=== PATIENT | female | born 1980 | race Two or more races ===

== ENCOUNTER 2016-09-16 12:29 | Emergency (ER) | payer MEDICAID ==
--- NOTE | 2016-09-16 12:41 | ER Document Report ---
ED Medical Screen (RME) - General Stated Complaint: ABDOMINAL PAIN Mode of Arrival: Ambulatory Information source: Patient Notes: Patient states she is currently about 3 months but has not had ultrasound to confirm the . Patient complains of worsening lower abdominal pain. Patient denies any vaginal bleeding or discharge. Patient denies any urinary symptoms. Patient does report nausea and vomiting. I have greeted and performed a rapid initial assessment of this patient. A comprehensive ED assessment and evaluation of the patient, analysis of test results and completion of the medical decision making process will be conducted by additional ED providers. - Related Data Allergies/Adverse Reactions: No Known Allergies Allergy (Unverified 09/16/16 12:39) Physical Exam - Vital signs Vitals: Temp Pulse Resp BP 98.4 F 100 18 114/76 09/16/16 12:38 09/16/16 12:38 09/16/16 12:38 09/16/16 12:38 - Abdominal Tenderness: Tender - Lower abdomen Course - Vital Signs Vital signs: Temp Pulse Resp BP Pulse Ox 98.4 F 100 18 114/76 09/16/16 12:38 09/16/16 12:38 09/16/16 12:38 09/16/16 12:38
[2016-09-16 13:56] LABS: ABSOLUTE EOSINOPHILS # (AUTO) 0.1 10^3/uL (0.0-0.6); ABSOLUTE LYMPHOCYTES (AUTO) 1.6 10^3/uL (0.5-4.7); ABSOLUTE MONOCYTES (AUTO) 0.7 10^3/uL (0.1-1.4); ABSOLUTE NEUT (AUTO) 7.1 10^3/uL (1.7-8.2); BASOPHILS % (AUTO) 0.4 % (0-2); EOSINOPHILS % (AUTO) 1.2 % (0-6); HEMATOCRIT 42.3 % (36.0-47.0); HEMOGLOBIN 13.6 g/dL (12.0-15.5); HGB HCT DIFFERENCE -1.5; LYMPHOCYTES % (AUTO) 17.2 % (13-45); MEAN CORPUSCULAR HEMOGLOBIN 30.5 pg (27.0-33.4); MEAN CORPUSCULAR HGB CONC 32.1 g/dL (32.0-36.0); MEAN CORPUSCULAR VOLUME 95 fl (80-97); MONOCYTES % (AUTO) 7.1 % (3-13); RED BLOOD COUNT 4.46 10^6/uL (3.72-5.28); RED CELL DISTRIBUTION WIDTH 13.2 % (11.5-14.0); SEGMENTED NEUTROPHILS % (AUTO) 74.1 % (42-78); WHITE BLOOD COUNT 9.5 10^3/uL (4.0-10.5)
[2016-09-16 14:06] LABS: AMORPHOUS SEDIMENT,URINE 1+ /HPF; APPEARANCE,URINE TURBID; BILIRUBIN,URINE NEGATIVE (NEGATIVE); GLUCOSE, URINE 50 mg/dL (NEGATIVE); KETONES,URINE NEGATIVE (NEGATIVE); LEUKOCYTE ESTERASE,URINE LARGE (NEGATIVE); NITRITE,URINE NEGATIVE (NEGATIVE); PROTEIN,URINE NEGATIVE (NEGATIVE); URINE SPECIFIC GRAVITY 1.014; UROBILINOGEN,URINE NEGATIVE mg/dL (<2.0)
[2016-09-16 14:15] LABS: ALANINE AMINOTRANSFERASE 11 U/L (9-52); ALBUMIN 4.1 g/dL (3.5-5.0); ALKALINE PHOSPHATASE 41 U/L (38-126); ANION GAP 12 (5-19); ASPARTATE AMINO TRANSFERASE 18 U/L (14-36); BILIRUBIN,TOTAL 0.4 mg/dL (0.2-1.3); BLOOD UREA NITROGEN 8 mg/dL (7-20); CALCIUM 9.6 mg/dL (8.4-10.2); CARBON DIOXIDE 26 mmol/L (22-30); CHLORIDE 100 mmol/L (98-107); GLUCOSE 94 mg/dL (75-110); LIPASE 81.1 U/L (23-300); POTASSIUM 4.7 mmol/L (3.6-5.0); SODIUM 137.6 mmol/L (137-145); TOTAL PROTEIN 7.1 g/dL (6.3-8.2)
--- NOTE | 2016-09-16 15:43 | ER Document Report ---
[id number] 4Bd TRAVEL OUTSIDE OF THE [place] IN LAST 30 DAYS: No - HPI Patient complains to provider of: Abdominal pain Onset: Other - see narrative Timing/Duration: Persistent Quality of pain: Cramping Associated symptoms: Other - see narrative <FERNANDA RODRIGUEZ - Last Filed: 09/16/16 16:08> <SWEETIE ALONSO - Last Filed: 09/18/16 01:27> - General Chief Complaint: Abdominal Cramping Stated Complaint: ABDOMINAL PAIN Notes: Patient is a 35-year-old female that presents to the emergency department today with complaints of abdominal pain. Patient states she is approximately 8-9 weeks and she has had intermittent abdominal pain since her began however over the last few days it has become constant. Patient states her pain is worse at night. Patient states she vomits after every meal. Patient is . Patient denies any vaginal bleeding, vaginal discharge, or urinary complaints. (FERNANDA RODRIGUEZ) - Related Data Allergies/Adverse Reactions: No Known Allergies Allergy (Unverified 01/04/13 12:18) Past Medical History - General Information source: Patient - Social History Smoking Status: Never Smoker Cigarette use (# per day): No Chew tobacco use (# tins/day): No Frequency of alcohol use: None Drug Abuse: None Lives with: Family Family History: Reviewed & Not Pertinent Patient has suicidal ideation: No Patient has homicidal ideation: No - Medical History Medical History: Negative Surgical Hx: Negative <FERNANDA RODRIGUEZ - Last Filed: 09/16/16 16:08> Review of Systems - Review of Systems Constitutional: No symptoms reported EENT: No symptoms reported Cardiovascular: No symptoms reported Respiratory: No symptoms reported Gastrointestinal: See HPI, Abdominal pain, Vomiting Genitourinary: denies: Burning, Dysuria, Discharge Female Genitourinary: See HPI, . denies: Vaginal discharge, Vaginal bleeding Musculoskeletal: No symptoms reported Skin: No symptoms reported Hematologic/Lymphatic: No symptoms reported Neurological/Psychological: No symptoms reported -: Yes All other systems reviewed and negative <FERNANDA RODRIGUEZ - Last Filed: 09/16/16 16:08> Physical Exam <FERNANDA RODRIGUEZ - Last Filed: 09/16/16 16:08> <SWEETIE ALONSO - Last Filed: 09/18/16 01:27> - Vital signs Vitals: Temp Pulse Resp BP 98.4 F 100 18 114/76 09/16/16 12:38 09/16/16 12:38 09/16/16 12:38 09/16/16 12:38 (FERNANDA RODRIGUEZ) (SWEETIE ALONSO) - Notes Notes: Physical Exam: General: Alert, appears well. HEENT: Normocephalic. Atraumatic. PERRL. Extraocular movements intact. Oropharynx clear. Neck: Supple. Non-tender. Respiratory: No respiratory distress. Clear and equal breath sounds bilaterally. Cardiovascular: Regular rate and rhythm. Abdominal: Normal Inspection. Non-tender. No distension. Normal Bowel Sounds. Back: Non-tender. No deformity or step off. Extremities: Moves all four extremities. Upper extremities: Non-tender. Normal ROM. Lower extremities: Normal inspection. No edema. Normal ROM. Neurological: Normal cognition. AAOx4. Normal speech. Psychological: Normal affect. Normal Mood. Skin: Warm. Dry. Normal color. (FERNANDA RODRIGUEZ) Course - Laboratory Result Diagrams: 09/16/16 13:30 09/16/16 13:30 <FERNANDA RODRIGUEZ - Last Filed: 09/16/16 16:08> - Laboratory Result Diagrams: 09/16/16 13:30 09/16/16 13:30 <SWEETIE ALONSO - Last Filed: 09/18/16 01:27> - Re-evaluation Re-evalutation: 09/16/16 18:59 Patient presents emergency Department chief complaint of suprapubic abdominal pain. Patient is 3 months has her first follow-up for SALES PERSON appointment on October 01. Said she's had some burning with urination no vaginal bleeding or discharge. On examination well-appearing nontoxic no acute abdominal guarding rebound rigidity. Does have a urinary tract infection which were given a treatment with Macrobid no signs of pyelonephritis or concerns for kidney stone. She is not septic. Ultrasound shows 10 week 4 day intrauterine with no other abnormalities. The discharge her to home on Macrobid follow primary care physician one to 2 days [facility]ES [facility]ERSON as scheduled on October 01 discussed reasons for ED return sooner (SWEETIE ALONSO) - Vital Signs Vital signs: Temp Pulse Resp BP Pulse Ox 98.4 F 96 18 122/80 98 09/16/16 19:22 09/16/16 19:22 09/16/16 19:22 09/16/16 19:22 09/16/16 19:22 (FERNANDA RODRIGUEZ) (SWEETIE ALONSO) - Laboratory Laboratory results interpreted by va: 09/16/16 09/16/16 13:30 13:30 Creatinine 0.50 L Beta HCG, Quant 022370.00 H Urine Glucose (UA) 50 H Ur Leukocyte Esterase LARGE H (FERNANDA RODRIGUEZ) (SWEETIE ALONSO) Discharge <FERNANDA RODRIGUEZ - Last Filed: 09/16/16 16:08> <SWEETIE ALONSO - Last Filed: 09/18/16 01:27> - Discharge Clinical Impression: UTI (urinary tract infection) during Condition: Stable Disposition: HOME, SELF-CARE Instructions: Trimethoprim-Sulfa ([facility]) Additional Instructions: Urinary Tract Infection Your evaluation indicates that you have a urinary tract infection. This is due to germs growing in the bladder. This is a common problem. This infection usually responds quickly to antibiotics. Your antibiotic should be taken exactly as prescribed. Drink plenty of fluids -- three to four quarts a day. Occasionally, a bladder anesthetic will be prescribed to help stop the feeling of urgency until the antibiotic has a chance to clear the infection. This may cause your urine to be dark orange. Certain urine infections require a culture. If the doctor obtained a culture, the results will be back in two days. You should call to see if a change in treatment is needed. A repeat urinalysis after you finish treatment is often recommended. The physician will let you know if further testing is required. Call the doctor if you develop fever, chills, flank pain, inability to urinate, or blood in the urine. Prescriptions: Nitrofurantoin/Nitrofuran Mac [Macrobid 100 mg Capsule] 1 tab PO BID #20 capsule Referrals: PAULINO LOPEZ MD [Primary Care Provider] - Follow up tomorrow (In one to 2 days return for increasing worsening or new symptoms) Scribe Documentation - Scribe Written by Genesis:: Genesis Lynn, 1614 09/16/16 acting as scribe for :: Malcolm <FERNANDA RODRIGUEZ - Last Filed: 09/16/16 16:08>
[2016-09-16 19:24] VITALS: BP 122/80
== END 2016-09-16 19:24 | disposition home or self-care (01) ==
LOC: MERGE 12:29 → ER 12:29
DX: N39.0 Urinary tract infection, site not specified (principal); R10.9 Unspecified abdominal pain; Z3A.08 8 weeks gestation of pregnancy; R11.10 Vomiting, unspecified
CPT/HCPCS: 36415; 76801; 80053; 81001; 83690; 84702; 85025; 86900; 86901; 99284

== ENCOUNTER 2017-04-12 06:50 | Inpatient (IN) | payer MEDICAID ==
[2017-04-12 07:35] LABS: APPEARANCE,URINE SLIGHTLY-CLOUDY; BILIRUBIN,URINE NEGATIVE (NEGATIVE); GLUCOSE, URINE 50 mg/dL (NEGATIVE); KETONES,URINE NEGATIVE (NEGATIVE); LEUKOCYTE ESTERASE,URINE SMALL (NEGATIVE); NITRITE,URINE NEGATIVE (NEGATIVE); PROTEIN,URINE NEGATIVE (NEGATIVE); URINE SPECIFIC GRAVITY 1.004; UROBILINOGEN,URINE NEGATIVE mg/dL (<2.0)
[2017-04-12 07:49] LABS: URINE BARBITURATES SCREEN NEGATIVE; URINE METHADONE SCREEN NEGATIVE; URINE OPIATES LOW NEGATIVE; URINE PHENCYCLIDINE SCREEN NEGATIVE
[2017-04-12] MEDS ORDERED: RINGERS SOLUTION,LACTATED 1,000 ML IV PRN (08:43)
[2017-04-12] MEDS ORDERED: MISOPROSTOL 0.2 MG TABLET PR PRN (08:50)
[2017-04-12] MEDS ORDERED: LIDOCAINE 1% INJ-PF (10 MG/ML) 30 ML SDV INJ PRN (08:50)
[2017-04-12] MEDS ORDERED: EPHEDRINE SULFATE INJ 50 MG/1 ML AMPULE IV PRN (08:53)
[2017-04-12] MEDS ORDERED: BUPIVACAINE HCL 0.25 % INJ/PF (2.5 MG/1 ML) 30 ML VIAL INFIL PRN (08:53)
[2017-04-12] MEDS ORDERED: BENZOIN/ALOE VERA/STORAX/TOLU TINCTURE 60 ML TP PRN (08:53)
[2017-04-12 09:51] LABS: ABSOLUTE EOSINOPHILS # (AUTO) 0.1 10^3/uL (0.0-0.6); ABSOLUTE LYMPHOCYTES (AUTO) 1.8 10^3/uL (0.5-4.7); ABSOLUTE MONOCYTES (AUTO) 0.8 10^3/uL (0.1-1.4); ABSOLUTE NEUT (AUTO) 6.9 10^3/uL (1.7-8.2); BASOPHILS % (AUTO) 0.2 % (0-2); EOSINOPHILS % (AUTO) 0.8 % (0-6); HEMATOCRIT 37.9 % (36.0-47.0); HGB HCT DIFFERENCE 1.1; LYMPHOCYTES % (AUTO) 19.2 % (13-45); MEAN CORPUSCULAR HEMOGLOBIN 33.2 pg (27.0-33.4); MEAN CORPUSCULAR HGB CONC 34.3 g/dL (32.0-36.0); MEAN CORPUSCULAR VOLUME 97 fl (80-97); MONOCYTES % (AUTO) 8.2 % (3-13); RED BLOOD COUNT 3.91 10^6/uL (3.72-5.28); RED CELL DISTRIBUTION WIDTH 14.5 % (11.5-14.0); SEGMENTED NEUTROPHILS % (AUTO) 71.6 % (42-78); WHITE BLOOD COUNT 9.6 10^3/uL (4.0-10.5)
[2017-04-12] MEDS ORDERED: EPHEDRINE SULFATE INJ 50 MG/1 ML AMPULE ONE (09:56)
[2017-04-12] MEDS ORDERED: FENTANYL/BUPIVACAINE/NS/PF 200 MCG/100 ML RTUINJ EPI ONE (09:57)
[2017-04-12] MEDS ORDERED: BUPIVACAINE HCL 0.25 % INJ/PF (2.5 MG/1 ML) 30 ML VIAL ONE (09:57)
[2017-04-12] MEDS ORDERED: LIDOCAINE 2% INJ-PF (20 MG/ML) 10 ML AMPUL ONE (10:19)
[2017-04-12] MEDS ORDERED: LIDOCAINE 1% INJ-PF (10 MG/ML) 30 ML SDV ONE (10:51)
[2017-04-12] MEDS ORDERED: OXYTOCIN/NORMAL SALINE 20 UNIT/1,000 ML RTUINJ ONE (11:39)
[2017-04-12] MEDS: FENTANYL/BUPIVACAINE/NS/PF 100 ML EPI PRN ×3 (11:39→14:42)
[2017-04-12] MEDS ORDERED: MISOPROSTOL 0.2 MG TABLET ONE (11:39)
[2017-04-12] MEDS ORDERED: DIPH/PERTUSS(ACELL)/TETANUS VAC/PF 0.5 ML SYR (>=10YO) IM PRN (14:28)
[2017-04-12] MEDS ORDERED: ACETAMINOPHEN WITH CODEINE #3 TABLET PO PRN ×2 (14:28)
[2017-04-12] MEDS ORDERED: DIBUCAINE 1% OINTMENT 28 GM TP PRN (14:28)
[2017-04-12] MEDS ORDERED: ZOLPIDEM TARTRATE 5 MG TABLET PO PRN (14:28)
[2017-04-12] MEDS ORDERED: BENZOCAINE/MENTHOL AEROSOL SPRAY 56 ML TOP PRN (14:28)
[2017-04-12] MEDS ORDERED: OXYTOCIN/NORMAL SALINE 1,000 ML IV PRN (14:28)
[2017-04-12] MEDS ORDERED: MEASLES,MUMPS&RUBELLA VACC/PF 0.5 ML VIAL SUBCUT PRN (14:28)
[2017-04-12] MEDS: OXYTOCIN/NORMAL SALINE 1,000 ML IV PRN ×2 (14:39→14:42)
--- NOTE | 2017-04-12 14:46 | Delivery Summary ---
Del Sum A-C Datetime Report Generated by CPN: 04/12/2017 14:46 DELIVERY PERSONNEL DELIVERY PERSONNEL: [phone] Delivery Doctor:: Tony Arriaza, DO Labor and Delivery Nurse:: Tenisha Dougherty RNtablet making machine operator helper Nurse:: Natali Walker RN Solar Panel Installer:: Azar Zurita RN Nursery Nurse:: Alley Franco RN Marketer/TEST ENGINE EVALUATOR: Steph García, RECYCLE COORDINATOR MATERNAL INFORMATION Delivery Anesthesia: Epidural Medications After Delivery: Pitocin Bolus-Please Comment; Pitocin Drip 20 Units/1000ml NSS Maternal Complications: None Provider Comments: of viable female in OA position Placenat delievered spontaneous and intact with 3v cord Fundus firm LABOR SUMMARY EDC: 04/15/2017 00:00 No. Babies in Womb: 1 Attempted: No Labor Anesthesia: Epidural LABOR INFORMATION Reason for Induction: Not Applicable Onset of Labor: 04/12/2017 05:00 Complete Dilatation: 04/12/2017 10:41 Oxytocin: N/A Group B Beta Strep: Negative Antibiotics # of Doses: 0 Antibiotics Time of Last Dose: N/A Name of Antibiotic Given: N/A Steroids Given: None Reason Steroids Not Administered: Not Applicable MEMBRANES Membranes Rupture Method: Artificial Rupture of Membranes: 04/12/2017 10:39 Length of Rupture (hr): 1.65 Amniotic Fluid Color: Clear Amniotic Fluid Amount: Small Amniotic Fluid Odor: Normal STAGES OF LABOR Stage 1 hr: 5 Stage 1 min: 41 Stage 2 hr: 1 Stage 2 min: 37 Stage 3 hr: 0 Stage 3 min: 3 Total Time in Labor hr: 7 Total Time in Labor min: 21 VAGINAL DELIVERY Episiotomy: None Laceration Extension: First Degree Laceration Type: Perineal Laceration Repair: Yes Laceration Repair Note: repaired with 3-0 chromic in usual fashion with good hemostasis Sponge Count Correct: Yes Sharps Count Correct: Yes CSECTION DELIVERY Primary Indication: N/A Secondary Indication: N/A CSection Incidence: N/A Labor: N/A Elective: N/A BABY A INFORMATION Delivery Date/Time: 04/12/2017 12:18 Method of Delivery: Vaginal Born in Route : No : N/A Forceps: N/A Vacuum Extraction: N/A Shoulder Dystocia : No PRESENTATION/POSITION BABY A Presentation: Cephalic Cephalic Presentation: Vertex Vertex Position: Left Occipital Anterior Breech Presentation: N/A PLACENTA INFORMATION BABY A Placenta Delivery Time : 04/12/2017 12:21 Placenta Method of Delivery: Spontaneous Placenta Status: Delivered SCORES BABY A Heart Rate 1 min: >100 bpm Resp Effort 1 min: Good Cry Reflex Irritability 1 min: Cough or Sneeze or Pulls Away Muscle Tone 1 min: Active Motion Color 1 min: Blue/Pale Resuscitation Effort 1 min: Tactile Stimulation SCORE 1 MIN: 8 Heart Rate 5 min: >100 bpm Resp Effort 5 min: Good Cry Reflex Irritability 5 min: Cough or Sneeze or Pulls Away Muscle Tone 5 min: Active Motion Color 5 min: Body [place], Extremities Blue Resuscitation Effort 5 min: N/A SCORE 5 MIN: 9 INFANT INFORMATION BABY A Gestational Age at Delivery: 39.4 Gestational Status: Full Term- 39- 40.6 Weeks Outcome : Liveborn Condition : Stable Infant Sex: Male IDENTIFICATION BABY A Infant Verification Date/Time: 04/12/2017 12:43 ID Band Number: [id number] Mother's Name Verified: Yes RN Verifying Infant: Homar Serna RN Additional Verifying Personnel: Diane Parminder RN CORD INFORMATION BABY A No. Cord Vessels: 3 Nuchal Cord : N/A Cord Blood Taken: Yes-For Eval (Mom's Blood Type - or O+) Infant Suction: None ASSESSMENT BABY A Complications: None Physical Findings at Delivery: Within Normal Limits Respirations: Appears Normal Skin to Skin: Yes Dry Kiln Operator/ALS Called : No Care By: Mazin Franco RN Transferred To: Remains with Mother BABY B INFORMATION : N/A SIGNATURES Signature: with User ID: [email or web address]
--- NOTE | 2017-04-12 15:02 | Admission Physical ---
Datetime Report Generated by CPN: 04/12/2017 15:01 CURRENT ADMISSION Chief Complaint: Uterine Contractions Indication for Induction: Not Applicable Admit Plan: Admit to Unit; Initiate Labor Protocol ALLERGIES Medication Allergies: No Medication Allergies: No Known Allergies (04/12/2017) Medication Allergies: No Known Allergies (01/04/2013) Latex: No Latex Allergies OBSTETRICAL HISTORY EDC: 04/15/2017 00:00 : 3 Para: 1 Term: 1 : 0 SAB: 0 IAB: 0 Ectopic: 0 Livin Cesareans: 0 VBACs: 0 Multiple Births: 0 SEE RECORDS Alcohol: No Marijuana : No Cocaine: No Other Illicit Drugs: No Cigarettes: Never Smoker. [id number] PHYSICAL EXAM General: Normal HEENT: Normal Neurologic: Normal Thyroid: Deferred Heart: Normal Lungs: Normal Breast: Deferred Back: Normal Abdomen: Normal Genitourinary Exam: Normal Extremities: Normal DTRs: Normal Pelvic Type: Adequate Vital Signs: Reviewed; Within Normal Limits VAGINAL EXAM Dilatation: 4 Effacement: 80 Station: -1 MEMBRANES Membranes: Intact FETUS A EGA: 39.4 Monitoring: External US FHR- Baseline: 135 Variability: Moderate 6-25bpm Accelerations: 15X15 Decelerations: None FHR Category: Category I Presentation: Vertex PLANS FOR LABOR AND DELIVERY Labor and Delivery: None Pain Management: Epidural Feeding Preference: Formula Benefit of Breast Feed Discussed: Yes Circumcision: N/A INFORMED CONSENT Signature: with User ID: [email or web address]
[2017-04-12] MEDS: DOCUSATE SODIUM 100 MG CAPSULE PO SCH (17:28)
[2017-04-12] MEDS: FERROUS SULFATE 325 MG TABLET PO SCH (17:28)
[2017-04-12] MEDS: IBUPROFEN 800 MG TABLET PO SCH (22:47)
[2017-04-13] MEDS: IBUPROFEN 800 MG TABLET PO SCH ×2 (05:55→15:23)
[2017-04-13 07:01] LABS: HEMATOCRIT 35.9 % (36.0-47.0); HEMOGLOBIN 12.2 g/dL (12.0-15.5); HGB HCT DIFFERENCE 0.7; MEAN CORPUSCULAR HEMOGLOBIN 33.5 pg (27.0-33.4); MEAN CORPUSCULAR HGB CONC 34.1 g/dL (32.0-36.0); MEAN CORPUSCULAR VOLUME 98 fl (80-97); RED BLOOD COUNT 3.65 10^6/uL (3.72-5.28); RED CELL DISTRIBUTION WIDTH 14.8 % (11.5-14.0); WHITE BLOOD COUNT 12.9 10^3/uL (4.0-10.5)
--- NOTE | 2017-04-13 09:49 | PDOC PROGRESS REPORT ---
Subjective-OB Subjective: Post Delivery Day: 36 year old. Denies any needs at this time Doing well, no c/o, OOB in BR, voiding, scant bleeding, eating well Physical Exam (OB) Vital Signs: Temp Pulse Resp BP Pulse Ox 97.6 F 75 16 106/73 100 04/13/17 07:58 04/13/17 07:58 04/13/17 07:58 04/13/17 07:58 04/13/17 07:58 Intake & Output 04/12/17 04/13/17 04/14/17 06:59 06:59 06:59 Intake Total 1000 Balance 1000 Weight 62.4 kg - PIH/Pre-Eclampsia Headache: Absent Epigastric Pain: No Visual Changes: No - Lochia Lochia Amount: Small 10-25 ml Lochia Color: Rubra/Red - Abdomen Description: Firm, Round Hernia Present: No Fundal Description: Firm Fundal Height: u/u - u/2 Objective-Diagnostic Laboratory: 04/13/17 06:44 04/12/17 04/12/17 04/13/17 09:17 09:17 06:44 WBC 9.6 12.9 H RBC 3.91 3.65 L Hgb 13.0 12.2 Hct 37.9 35.9 L MCV 97 98 H MCH 33.2 33.5 H MCHC 34.3 34.1 RDW 14.5 H 14.8 H Plt Count 180 173 Seg Neutrophils % 71.6 Lymphocytes % 19.2 Monocytes % 8.2 Eosinophils % 0.8 Basophils % 0.2 Absolute Neutrophils 6.9 Absolute Lymphocytes 1.8 Absolute Monocytes 0.8 Absolute Eosinophils 0.1 Absolute Basophils 0.0 Blood Type O POSITIVE Antibody Screen NEGATIVE Assessment and Plan(PN) - Assessment and Plan (1) Normal vaginal delivery Is this a current diagnosis for this admission?: Yes - Time Spent with Patient Time with patient: Less than 15 minutes Medications reviewed and adjusted accordingly: Yes - Disposition Anticipated Discharge: Home Within: within 24 hours
[2017-04-13] MEDS: FERROUS SULFATE 325 MG TABLET PO SCH ×2 (11:07→18:23)
[2017-04-13] MEDS: DOCUSATE SODIUM 100 MG CAPSULE PO SCH ×2 (11:07→18:23)
[2017-04-13] MEDS: PRENATAL VITAMIN W-O CA NO5/FE FUMARATE/FA CAPSULE PO SCH (11:08)
[2017-04-13] MEDS: SENNOSIDES/DOCUSATE 8.6-50 MG 1 EACH TABLET PO SCH (11:08)
[2017-04-14] MEDS: IBUPROFEN 800 MG TABLET PO SCH ×2 (03:14→06:06)
[2017-04-14 08:50] VITALS: BP 104/70
[2017-04-14] MEDS: DOCUSATE SODIUM 100 MG CAPSULE PO SCH (09:54)
[2017-04-14] MEDS: FERROUS SULFATE 325 MG TABLET PO SCH (09:55)
[2017-04-14] MEDS: SENNOSIDES/DOCUSATE 8.6-50 MG 1 EACH TABLET PO SCH (09:55)
[2017-04-14] MEDS: PRENATAL VITAMIN W-O CA NO5/FE FUMARATE/FA CAPSULE PO SCH (09:55)
--- NOTE | 2017-04-14 11:35 | PDOC DISCHARGE SUMMARY ---
Final Diagnosis Discharge Date: 04/14/17 Discharge Data - Discharge Medication Home Medications: Vit/Iron Fumarate/FA [ Tablet] 1 tab PO DAILY 04/12/17 Ibuprofen [Motrin 800 mg Tablet] 800 mg PO Q8HP PRN #30 tablet 04/14/17 Reason(s) for Admission: Onset of Labor Procedures: Ultrasound Intrapartum Procedure(s): Spontaneous Vaginal Delivery Complication(s): Laceration-Perineal Laceration-Degree: 1st - Diagnosis Test Laboratory: Temp Pulse Resp BP Pulse Ox 98.4 F 78 16 104/70 100 04/14/17 07:25 04/14/17 07:24 04/14/17 07:24 04/14/17 07:25 04/14/17 07:24 04/12/17 04/12/17 04/13/17 06:58 09:17 06:44 RBC 3.91 3.65 L Hgb 13.0 12.2 Hct 37.9 35.9 L Urine Opiates Screen NEGATIVE - Discharge information/Instructions Discharge Activity: Activity As Tolerated, Balance Activity w/Rest, No Lifting Over 10 Pounds, No Lifting/Push/Pulling, Pelvic Rest, Slowly Increase Activity, No tub bath Discharge Diet: Regular Disposition: HOME, SELF-CARE Follow [facility] with: [facility] in: 4, Weeks
== END 2017-04-14 13:02 | disposition home or self-care (01) | DRG 775 ==
LOC: LC 06:50 → LR 08:48 → 2N 14:47
PROVIDERS: ADMIT Obstetrics & Gynecology; ATTEND Obstetrics & Gynecology
PROC: 10E0XZZ Delivery of Products of Conception, External Approach (ICD-10-PCS; principal; 2017-04-12)
PROC: 0HQ9XZZ Repair Perineum Skin, External Approach (ICD-10-PCS; 2017-04-12)
PROC: 10907ZC Drainage of Amniotic Fluid, Therapeutic from Products of Conception, Via Natural or Artificial Opening (ICD-10-PCS; 2017-04-12)
PROC: 4A1HXCZ Monitoring of Products of Conception, Cardiac Rate, External Approach (ICD-10-PCS; 2017-04-12)
DX: O70.0 First degree perineal laceration during delivery (principal); Z37.0 Single live birth; Z3A.39 39 weeks gestation of pregnancy
CPT/HCPCS: 36415; 80307; 81005; 85025; 85027; 86592; 86850; 86900; 86901; 94760; J2590; J3490